=== PATIENT | male | born 1975 | race Caucasian/White ===

== ENCOUNTER 2021-03-11 23:16 | Emergency (ER) | payer SELFPAY ==
[~2021-03-11] VITALS: Ht 177.8 cm; Wt 177.0 kg
[2021-03-12] MEDS ORDERED: ONDANSETRON HCL 4MG/2ML INJ IV STA (00:29)
[2021-03-12] MEDS ORDERED: SODIUM CHLORIDE 0.9% 1,000 ML IV ONE (00:30)
[2021-03-12 00:54] LABS: BASOPHILS % 0.3 % (0.0-2.0); EOSINOPHILS % 0.1 % (0.0-5.0); HEMATOCRIT. 41.4 % (42.0-52.0); HEMOGLOBIN. 14.1 g/dL (14.0-18.0); LYMPHOCYTES % 13.2 % (20.0-50.0); MEAN CORPUSCULAR HEMOGLOBIN 32.6 pg (28.0-32.0); MEAN PLATELET VOLUME 9.8 fl (7.4-10.4); NEUTROPHILS % 83.4 % (40.0-76.0); PLATELET 186 x1000/uL (130-400); RED BLOOD CELL COUNT 4.31 mill/uL (4.7-6.1); RED CELL DISTRIBUTION WIDTH 12.9 % (11.6-14.6)
[2021-03-12 01:01] LABS: CHLORIDE 108 mEq/L (98-107)
[2021-03-12 01:06] LABS: ETHANOL BLOOD 271 mg/dL
[2021-03-12] MEDS ORDERED: NALO4SPR BOTHNSTRLS (05:50)
[2021-03-12 06:06] VITALS: BP 146/83
== END 2021-03-12 06:09 | disposition home or self-care (01) ==
LOC: ER 23:16
DX: T51.0X1A Toxic effect of ethanol, accidental (unintentional), initial encounter (principal); Y92.89 Other specified places as the place of occurrence of the external cause; R11.10 Vomiting, unspecified; R53.1 Weakness
CPT/HCPCS: 36415; 71045; 80053; 80320; 85025; 96361; 96374; 99285; J2405; J7030; G0480

== ENCOUNTER 2022-03-17 09:54 | Emergency (ER) | payer MEDICAID, OTHER ==
[~2022-03-17] VITALS: Ht 177.8 cm; Wt 150.0 kg
[~2022-03-17 09:54] MED LIST: NALO4SPR BOTHNSTRLS
[2022-03-17] MEDS ORDERED: ASPIRIN 81MG TABLET PO ONE (10:00)
[2022-03-17] MEDS ORDERED: MAGNESIUM/ALUMINUM HYDROXIDE/SIMETHICONE 30ML UDC PO STA (10:00)
[2022-03-17] MEDS ORDERED: CHLORDIAZEPOXIDE 25MG CAPSULE PO ONE ×2 (10:00→14:15)
[2022-03-17] MEDS ORDERED: ONDANSETRON 4MG ODT PO STA (10:00)
[2022-03-17] MEDS ORDERED: SODIUM CHLORIDE 0.9% 1,000 ML IV ONE (10:00)
[2022-03-17 10:35] LABS: BASOPHILS % 0.3 % (0.0-2.0); EOSINOPHILS % 0.3 % (0.0-5.0); HEMATOCRIT. 46.3 % (42.0-52.0); HEMOGLOBIN. 15.7 g/dL (14.0-18.0); LYMPHOCYTES % 21.2 % (20.0-50.0); MEAN CORPUSCULAR HEMOGLOBIN 32.4 pg (28.0-32.0); MEAN CORPUSCULAR VOLUME 95.6 fL (80.0-94.0); MEAN PLATELET VOLUME 9.4 fl (7.4-10.4); MONOCYTES % 8.2 % (2.0-8.0); PLATELET 237 x1000/uL (130-400); RED BLOOD CELL COUNT 4.84 mill/uL (4.7-6.1); RED CELL DISTRIBUTION WIDTH 12.9 % (11.6-14.6)
[2022-03-17] MEDS ORDERED: ASPIRIN 81MG TABLET PO NR (11:00)
[2022-03-17] MEDS ORDERED: ONDANSETRON 4MG ODT PO NR (11:00)
[2022-03-17] MEDS ORDERED: MAGNESIUM/ALUMINUM HYDROXIDE/SIMETHICONE 30ML UDC PO NR (11:00)
[2022-03-17] MEDS ORDERED: CHLORDIAZEPOXIDE 25MG CAPSULE PO NR (11:00)
[2022-03-17 11:13] LABS: CHLORIDE 99 mEq/L (98-107); ETHANOL BLOOD < 10 mg/dL
[2022-03-17 11:41] LABS: *AMPHETAMINES SCREEN URINE NEGATIVE (NEGATIVE); *BARBITURATES SCREEN URINE NEGATIVE (NEGATIVE); *BENZODIAZEPINES SCREEN URINE NEGATIVE (NEGATIVE); *COCAINE SCREEN URINE NEGATIVE (NEGATIVE); CANNABINOID URINE SCREEN PRESUMTIVE POSITIVE (NEGATIVE); METHADONE URINE SCREEN NEGATIVE (NEGATIVE); OPIATES URINE SCREEN NEGATIVE (NEGATIVE); PHENCYCLIDINE URINE SCREEN NEGATIVE (NEGATIVE)
[2022-03-17 15:41] VITALS: BP 130/71
== END 2022-03-17 16:10 | disposition home or self-care (01) ==
LOC: ER 10:23
DX: R07.89 Other chest pain (principal); F10.10 Alcohol abuse, uncomplicated; Y90.0 Blood alcohol level of less than 20 mg/100 ml; Z98.84 Bariatric surgery status
CPT/HCPCS: 36415; 71045; 80053; 80305; 80307; 80320; 83690; 84484; 85025; 93005; 96360; 96361; 99285; J7030; Q0162; Z7610; G0480

== ENCOUNTER 2022-10-10 16:05 | Emergency (ER) | payer MEDICAID, OTHER ==
[~2022-10-10] VITALS: Ht 177.8 cm; Wt 150.0 kg
[2022-10-10 16:12] VITALS: BP 183/116
[2022-10-10 17:29] LABS: BASOPHILS % 1.2 % (0.0-2.0); EOSINOPHILS % 2.4 % (0.0-5.0); HEMATOCRIT. 42.3 % (42.0-52.0); HEMOGLOBIN. 14.3 g/dL (14.0-18.0); LYMPHOCYTES % 30.1 % (20.0-50.0); MEAN CORPUSCULAR HEMOGLOBIN 32.6 pg (28.0-32.0); MEAN CORPUSCULAR VOLUME 96.7 fL (80.0-94.0); MEAN PLATELET VOLUME 9.7 fl (7.4-10.4); MONOCYTES % 8.8 % (2.0-8.0); NEUTROPHILS % 57.5 % (40.0-76.0); PLATELET 217 x1000/uL (130-400); RED BLOOD CELL COUNT 4.38 mill/uL (4.7-6.1); RED CELL DISTRIBUTION WIDTH 13.7 % (11.6-14.6)
[2022-10-10 17:34] LABS: CHLORIDE 110 mEq/L (98-107)
== END 2022-10-10 23:04 | disposition left against medical advice (07) ==
LOC: ER 16:05
DX: R07.89 Other chest pain (principal); F10.21 Alcohol dependence, in remission
CPT/HCPCS: 36415; 71045; 80053; 84484; 85025; 93005; 99285